=== PATIENT | male | born 1985 | race African-American/Black ===

== ENCOUNTER 2020-10-25 07:03 | Emergency (ER) | payer OTHER ==
[~2020-10-25] VITALS: Ht 188 cm; Wt 106.8 kg
[~2020-10-25 07:03] MED LIST: AMOXICILLIN500 MG OR; FLEXERIL PO; IBUPROFEN800 MG; LORTAB 1010 MG PO; NAPROSYN500 MG PO; PERCOCET 5/325M1 TAB OR; ULTRAM50 MG; ULTRAM50 MG OR
[2020-10-25] MEDS ORDERED: HYDROCO/APAP1 TA9 PO (08:37)
[2020-10-25 08:44] VITALS: BP 142/72
== END 2020-10-25 08:50 | disposition home or self-care (01) | DRG 552 ==
LOC: ED 07:03
DX: M51.26 Other intervertebral disc displacement, lumbar region (principal); F17.200 Nicotine dependence, unspecified, uncomplicated